=== PATIENT | male | born 1960 | race American Indian/Alaskan Native ===

== ENCOUNTER 2016-03-22 07:15 | Day surgery (SDC) | payer MEDICAID ==
--- NOTE | 2016-03-22 08:30 | Anesthesia Consultation ---
Anesthesia Consult and Med Hx Date of service: 03/22/16 - Airway Anesthetic Teeth Evaluation: Poor ROM Head & Neck: Inadequate Mental/Hyoid Distance: Adequate Mallampati Class: Class III Intubation Access Assessment: Possibly Difficult - Pulmonary Exam CTA: Yes - Cardiac Exam Cardiac Exam: RRR - Pre-Operative Health Status ASA Pre-Surgery Classification: ASA3 Proposed Anesthetic Plan: General - Pre-Anesthesia Comment Pre-Anesthesia Comments: Left upper central incisor is loose. Patient is aware that loose teeth are very succeptible to dislodgement during anesthesia due to airway manipulation. - Pulmonary Hx Smoking: Yes (1 ppd) Hx Asthma: No COPD: No Hx Pneumonia: No - Cardiovascular System Hx Hypertension: Yes - Central Nervous System CVA: Yes - Endocrine Hx End Stage Renal Disease: No - Other Systems Hx Alcohol Use: Yes (1 pint carlos qday x35 years) Hx Obesity: Yes
--- NOTE | 2016-03-22 08:30 | Anesthesia Day of Surgery ---
Anesthesia Day of Surgery - Day of Surgery Patient Examined: Yes Patient H&P Reviewed: Yes Patient is NPO: Yes
[2016-03-22] MEDS ORDERED: ZOFRAN IV PRN (08:31)
[2016-03-22] MEDS ORDERED: NORCO 5/325 PO PRN (08:31)
[2016-03-22] MEDS ORDERED: PEPCID IV NR (09:00)
[2016-03-22] MEDS ORDERED: VERSED IV NR (09:00)
[2016-03-22] MEDS ORDERED: LACTATED RINGERS 1,000 ML IV SCH (09:00)
[2016-03-22] MEDS ORDERED: DIPRIVAN 10 MG/ML IV ONE (09:22)
[2016-03-22] MEDS ORDERED: SUBLIMAZE ONE (09:22)
[2016-03-22] MEDS ORDERED: XYLOCAINE MPF 2% ONE (09:23)
[2016-03-22] MEDS ORDERED: LEVAQUIN 500MG/100ML 100 ML IV NR (09:30)
[2016-03-22] MEDS ORDERED: DECADRON ONE (09:46)
[2016-03-22] MEDS ORDERED: ANCEF/STERILE WATER 2 GM/20 ML IV NR (10:00)
[2016-03-22] MEDS ORDERED: ZOFRAN ONE (10:10)
[2016-03-22] MEDS ORDERED: DILAUDID ONE (10:54)
[2016-03-22] MEDS ORDERED: NACL 0.9% IR ONE (11:00)
[2016-03-22] MEDS ORDERED: WATER FOR IRRIG STERILE IR ONE (11:00)
--- NOTE | 2016-03-22 11:22 | Post Operative Note ---
Pre-op diagnosis: heme and hydrocele Post-op diagnosis: other (severe urethral stricture as well) Findings: as above Procedure: cysto dviu r hydrocelectomy Anesthesia: GETA Surgeon: KRISTINA BYRNES Estimated blood loss: minimal Pathology: list (sca and cyst) Specimen disposition: to lab Condition: stable Disposition: PACU
--- NOTE | 2016-03-22 11:24 | Discharge Summary ---
Short Stay Discharge Plan Activity: other (no straining ) Weight Bearing Status: Full Weight Bearing Diet: low fat, low cholesterol, low salt Wound: open to air (keep dry ) Special Instructions: other (dressing change prn.. teach wallis care ) Durable Medical Equipment Needed Upon Discharge: other (wallis) Follow up with: NGOC ALMEIDA MD [Primary Care Provider] - 7 Days KRISTINA BYRNES MD [Staff Physician] - 3 Days
[2016-03-22] MEDS: DILAUDID IV PRN ×4 (11:30→12:18)
--- NOTE | 2016-03-22 11:45 | Operative Report ---
PREOPERATIVE DIAGNOSES: Large right symptomatic hydrocele and microscopic hematuria. POSTOPERATIVE DIAGNOSES: Large right symptomatic hydrocele and microscopic hematuria, with a small left hydrocele which was not treated as well as significant approximately 1.5 cm bulbous urethral stricture. PROCEDURE: Right hydrocelectomy and direct vision internal urethrotomy. SURGEON: Anthony Win MD ANESTHESIA: General. FINDINGS: This is a gentleman as mentioned with a right hydrocele with pain and he now presents for cystoscopy and treatment of hydrocele. DESCRIPTION OF PROCEDURE: The patient was brought to the operating room and placed on the operating table. Following induction of anesthesia, he was placed in supine position, prepped and draped in usual sterile fashion. An oblique incision was made over the right hemiscrotum and carried down to the tunica vaginalis. This was dissected free. The vaginalis was opened. Approximately 80 mL of clear yellow fluid was removed. There were some cystic changes on the epididymis which were excised. Hemostasis was excellent. The tunica vaginalis was oversewn and imbricated. We were sure not to have excess tension on the cord and the vasculature. A half-inch Darlene was placed in the dependent portion of the scrotum secured with silk. Wound was irrigated. Superficial tunica was approximated with 3-0 chromic and skin with 3-0 chromic. The patient tolerated the procedure well. Cystoscopy was carried out with the flexible scope and immediately showed a bulbous stricture. This was very tight and long. We placed a wire and then we tried our best to dilate it, but we wanted to be sure that we were in good position. So, under direct vision, we opened up the stricture at the 12 o'clock position down to the prostatic urethra. Then, we used the flexible scope and the bladder was unremarkable. There was minimal trabeculation. We then replaced the wire, placed an 18 Guerra. The patient tolerated the procedure well. This was the [place] catheter over the wire, brought to recovery in stable condition. JOB# [id number] SANCHO/CRIS
[2016-03-22] MEDS ORDERED: PYRIDIUM PO ONE (12:00)
--- NOTE | 2016-03-22 12:43 | Post Anesthesia Evaluation ---
- Post Anesthesia Evaluation Patient Participated: Yes Airway Patent: Yes Stable Respiratory Function: Yes Nausea/Vomiting: No Temp > 96.8F: Yes Pain Manageable: Yes Adequeate Hydration: Yes Anesthesia Complications: No Block Receding Appropriately: Not Applicable Patient on Ventilator: No
[2016-03-22 16:16] VITALS: BP 145/95
--- NOTE | 2016-03-22 21:05 | Admit Criteria Form ---
Admission Criteria Documentation: AMBULATORY SURGERY EXCEPTION CRITERIA Ambulatory Surgery Exception Criteria ( Place 'X' for any and all applicable criteria): Surgery or procedure performed on ambulatory basis may require inpatient stay for[A] ANY ONE of the following(1)(2)(3)(4)(5)(6)(7)(8)(9): [X] I. A preoperative situation, condition, or finding that warrants inpatient stay as indicated by ANY ONE of the following: [] a) Inpatient care needed because of severity of a disease or condition rather than the surgery (eg, severe cardiac or respiratory disease, severe infection) (15) (16 ) (17) (18) [] b) Emergent procedure (eg, angioplasty for acute ischemia)(19) [] c) Complex surgical approach or situation as indicated by ANY ONE of the following(3): [] i) Open approach needed instead of usual endoscopic, transcatheter, or other less invasive procedure [] ii) Difficult approach because of previous operation [] iii) Airway monitoring required after open neck procedures(20)(21) [] iv) Large mass requiring unusually extensive dissection [] v) Additional complicating feature requiring inpatient care (eg, drain management)(22(23): [X] d) Major surgery in a pt with high anesthetic risk as indicated by ANY ONE of the following (2)(3)(5)(7)(8): [X] i) ASA risk class III or higher (severe systemic disease impairing function) [D] [] ii) Advanced age (eg, older than 85 years)(14)(24) [] iii) Symptomatic heart failure(25) [] iv) Symptomatic asthma or COPD(8)(21) [] v) Morbid obesity with hemodynamic or respiratory problems(20)( 21)(26)(27) [] vi) Obstructive sleep apnea(20)(21) [] vii) Former premature infants who are younger than 60 weeks [] viii) High risk for severe postoperative abnormalities (eg, severe postoperative hypocalcemia after parathyroidectomy for severe hyperparathyroidism)(27)( 28) [] ix) Unstable angina(25) [] e) Drug-related risk requiring inpatient stay as indicated by ANY ONE of the following(5)(10)(14)(32)(33) [] i) Procedure requires discontinuing drugs or other therapy (eg , antiarrhythmic medication, antiseizure medication), which necessitates inpatient observation or treatment.(18)(31) [] ii) Major surgery and high risk drug use as indicated by ANY ONE of the following: [] 1) Active abuse of cocaine or similar drug [] 2) Monoamine oxidase inhibitor use [] 3) Other drug identified as posing risk [] f) Inadequate outpatient care situation as indicated by ANY ONE of the following(5)(10)(14)(32)(33) [] i) Patient lives remote from medical facility and procedure has urgent complication potential, and temporary nearby residence cannot be arranged [] ii) Patient will have postprocedure incapacitation and inadequate assistance at home, or alternative level of care cannot be arranged. [] iii) Patient will have long general anesthesia or procedure side effect resolution time, and competent person to stay with patient on first postoperative night at home or alternative level of care cannot be arranged. []iv) Other inadequate outpatient situation that cannot be handled by other means [] II. A perioperative event, condition, or finding that warrants inpatient stay as indicated by ANY ONE of the following (1)(2)(3): [] a) Inadequate physiologic recovery: cardiovascular, respiratory, or hemodynamic status not normal or near preoperative baseline(18) [] b) Hemodynamic instability [] c) Patient not alert with near normal or baseline mental status [] d) Temperature not normal or as expected and not appropriate for outpatient treatment of condition [] e) Ambulatory or appropriate activity level status not yet achieved post procedure [E](34)(35)(36) [] f) Operative site not appropriate (eg, unexpected or excessive drainage or bleeding) [] g) Postoperative effects not resolved or adequately managed (eg, significant pain or vomiting not appropriate for outpatient or next level of care)(10)(12) [] h) Complicating features requiring inpatient care as indicated by ANY ONE of the following(37): [] i) Severe complications of procedure (eg, bowel injury, airway compromise, vascular injury,severe hemorrhage) [] ii) Extensive (eg, dissection far beyond usual scope of procedure ) or prolonged (eg, 120 minutes beyond usual) surgery needed requiring inpatient postoperative care [] iii) Conversion to an open or complex procedure that requires inpatient care (eg, open vs laparoscopic cholecystectomy, abdominal vs vaginal hysterectomy)(38) [] iv) Comorbid condition or test result identified during or post procedure that requires inpatient care (7) [] v) Malignant hyperthermia(30) [] vi) Other complicating feature requiring inpatient care(22)(23) Inpatient stay may be needed until ALL of the following are present (1)(2)(3)(4) (5)(6)(10)(14)(33)(40): []a) Physiologic recovery: cardiovascular, respiratory, and hemodynamic status normal or near preoperative baseline []b) Hemodynamic stability []c) Patient alert, with near normal or baseline mental status []d) Temperature appropriate: patient afebrile or temperature appropriate for outpt treatment of condition []e) Activity level appropriate: ambulatory or appropriate activity level post procedure []f) Operative site appropriate as indicated by ALL of the following: []i) Site dry or with expected drainage []ii) Any blood noted is as expected for procedure. []g) Postoperative effects resolved or managed as indicated by ALL of the following: []i) Pain management appropriate for outpatient (or next level of) care(10) []ii) Minimal nausea and vomiting: if present, successfully treated with oral medication(12) []iii) Headache, dizziness, or drowsiness (if present) are mild. []h) Voiding status acceptable as indicated by ANY ONE of the following: []i) Voiding spontaneously []ii) No voiding but instructions given for follow-up in 6 to 8 hours []iii) Urinary catheter in place, and instructions given for follow-up []i) Complicating features requiring inpatient care manageable at a lower level of care(37) []j) Comorbid conditions manageable at a lower level of care(37) The original [employer] content created by [employer] has been revised. The portions of the content which have been revised are identified through the use of italic text or in bold, and [facility] [employer] has neither reviewed nor approved the modified material. All other unmodified content is copyright [employer]. Please see references footnoted in the original [employer] edition 2016 Admission Criteria Met: Yes
== END 2016-03-22 14:00 | disposition home or self-care (01) ==
LOC: OR 07:15
PROVIDERS: ATTEND Urology
DX: N43.2 Other hydrocele (principal); N35.9 Urethral stricture, unspecified; I10 Essential (primary) hypertension; F17.210 Nicotine dependence, cigarettes, uncomplicated; E66.9 Obesity, unspecified; Z68.39 Body mass index [BMI] 39.0-39.9, adult; Z72.89 Other problems related to lifestyle; Z86.73 Personal history of transient ischemic attack (TIA), and cerebral infarction without residual deficits
CPT/HCPCS: 52276; 55040; 88302; A4217; C1726; C1769; J1100; J1170; J1956; J2250; J2405; J2704; J3010; J7120

== ENCOUNTER 2016-07-12 09:42 | Emergency (ER) | payer MEDICAID ==
[2016-07-12] MEDS ORDERED: FIORICET PO ONE (13:51)
--- NOTE | 2016-07-12 14:40 | Cat Scan Report ---
CT head without contrast: Axial images demonstrates an approximate 16 mm sized area of hypodensity in the left frontoparietal region and a significantly smaller area in the left mid left parietal region. A third small area of hypodensity is identified in the putamen region. A lacunar type area of hypodensity is identified in the right caudate nucleus. There is no evidence of mass effect nor hemorrhage in any of these locations room. No extra cerebral collection. Normal ventricles position and size. The visualized bones and paranasal sinuses are unremarkable. Compared to this patient's prior examination in February 2014 these findings appear to be generally unchanged. Impressions: Multiple chronic infarcts. No acute findings.
--- NOTE | 2016-07-12 15:07 | Emergency Department Report ---
ED General Adult HPI - General Chief complaint: Skin Rash Stated complaint: RASH/HEADACHE /PAIN IN BOTH KNEES Time Seen by Provider: 07/12/16 13:00 Source: patient Mode of arrival: Ambulatory Limitations: No Limitations - History of Present Illness Initial comments: PT c/o rash for 2-3 years. PT states the rash will flare up and then improve with steroids. PT states the rash is being treated by his PCP. PT states he was seen by Dr Aleman on 07-06-16. PT has the RX medications that he was started on with him (Bactrim, medrol dose pack, and Hydroxyzine) PT states no improvement in rash. PT states the rash has been itchy and painful x 10 days. PT states he has had a headache x 4 days. PT also co knee pain from arthritis. PT denies that close contacts have a rash. MD Complaint: rash/ headache/ knee pain Onset/Timin -: Gradual, days(s) (of rash ) Location: face, chest, back, abdomen, buttocks, upper extremity, lower extremity Severity scale (0 -10): 10 Quality: burning, constant, other (itchy ) Consistency: constant Improves with: none Worsens with: medication Associated Symptoms: denies other symptoms. denies: fever/chills, loss of appetite, nausea/vomiting Treatments Prior to Arrival: other (bactrim, medrol) - Related Data Previous Rx's Medication Instructions Recorded Last Taken Type Butalb/Acetamin/Caff 50-325-40 2 tab PO Q4H PRN #30 tablet 03/13/14 Unknown Rx [Fioricet] Aspirin EC [Aspirin Enteric Coated 81 mg PO QDAY #30 tablet. 07/15/15 Unknown Rx TAB] Indomethacin [Indocin] 25 mg PO Q8H #14 capsule 07/15/15 03/21/16 Rx Pravastatin (Nf) [Pravachol] 20 mg PO QDAY #30 tablet 07/15/15 03/21/16 Rx amLODIPine [Norvasc] 10 mg PO DAILY #30 tablet 07/15/15 03/21/16 Rx Butalb/Acetamin/Caff 50-325-40 1 tab PO Q6HR PRN #12 tab 07/12/16 Unknown Rx [Fioricet] predniSONE [Deltasone] 40 mg PO QDAY #10 tab 07/12/16 Unknown Rx Allergies Allergy/AdvReac Type Severity Reaction Status Date / Time Penicillins AdvReac Rash Verified 03/22/16 09:33 ED Review of Systems ROS: Stated complaint: RASH/HEADACHE /PAIN IN BOTH KNEES Other details as noted in HPI Constitutional: denies: chills, fever Respiratory: denies: cough Cardiovascular: denies: chest pain Gastrointestinal: denies: abdominal pain, nausea, vomiting Musculoskeletal: as per HPI Skin: rash Neurological: headache. denies: weakness (no new weakness ), abnormal gait ( ambulates with gait. ) ED Past Medical Hx - Past Medical History Hx Hypertension: Yes Hx CVA: Yes Hx Congestive Heart Failure: No Hx Diabetes: No Hx Arthritis: Yes Hx Asthma: No Hx COPD: No Additional medical history: HIGH CHOLESTEROL. GOUT - Social History Smoking Status: Current Every Day Smoker Substance Use Type: Alcohol - Medications Home Medications: Home Medications Medication Instructions Recorded Confirmed Last Taken Type Butalb/Acetamin/Caff 50-325-40 2 tab PO Q4H PRN #30 tablet 03/13/14 07/15/15 Unknown Rx [Fioricet] Aspirin EC [Aspirin Enteric Coated 81 mg PO QDAY #30 tablet. 07/15/15 Unknown Rx TAB] Indomethacin [Indocin] 25 mg PO Q8H #14 capsule 07/15/15 03/21/16 Rx Pravastatin (Nf) [Pravachol] 20 mg PO QDAY #30 tablet 07/15/15 03/21/16 Rx amLODIPine [Norvasc] 10 mg PO DAILY #30 tablet 07/15/15 03/21/16 Rx Butalb/Acetamin/Caff 50-325-40 1 tab PO Q6HR PRN #12 tab 07/12/16 Unknown Rx [Fioricet] predniSONE [Deltasone] 40 mg PO QDAY #10 tab 07/12/16 Unknown Rx ED Physical Exam - General Limitations: No Limitations General appearance: alert, in no apparent distress, obese - Head Head exam: Present: atraumatic, normocephalic, normal inspection - Eye Eye exam: Present: normal appearance, PERRL, EOMI. Absent: conjunctival injection - ENT ENT exam: Present: mucous membranes moist, normal external ear exam, other ( poor dentation ) - Neck Neck exam: Present: normal inspection, full ROM - Respiratory Respiratory exam: Present: normal lung sounds bilaterally. Absent: respiratory distress - Cardiovascular Cardiovascular Exam: Present: regular rate, normal rhythm, normal heart sounds - GI/Abdominal GI/Abdominal exam: Present: soft, normal bowel sounds. Absent: tenderness - Extremities Exam Extremities exam: Present: full ROM. Absent: tenderness, pedal edema, joint swelling, calf tenderness - Back Exam Back exam: Present: full ROM. Absent: tenderness, CVA tenderness (R), CVA tenderness (L), muscle spasm, paraspinal tenderness, vertebral tenderness - Neurological Exam Neurological exam: Present: alert, oriented X3, normal gait - Expanded Neurological Exam Expanded Patient oriented to: Present: person, place, time Cranial nerves: EOM's Intact: Normal Sensory exam: Upper Extremity Light Touch: Normal, Lower Extremity Light Touch: Normal, Lower Extremity Temperature: Normal Motor strength exam: RUE: 5, LUE: 5, RLE: 5, LLE: 5 Best Eye Response ([place]): (4) open spontaneously Best Motor Response ([place]): (6) obeys commands Best Verbal Response ([place]): (5) oriented [place] Total: 15 - Psychiatric Psychiatric exam: Present: normal affect, normal mood - Skin Skin exam: Present: warm, dry, rash - Expanded Skin Exam Expanded Distribution of rash: generalized, thorax, chest, abdomen Description of rash: Present: erythematous, macular, papular, other (R trunk has hyperpigmented patches. multiple areas of excoriation noted. ). Absent: tenderness, swelling, vesicular, blisters, bullous, petechial, purpuic, urticarial, discharge ED Course Vital Signs 07/12/16 07/12/16 09:46 15:23 Temperature 98.5 F Pulse Rate 94 H 88 Respiratory 16 18 Rate Blood Pressure 133/82 Blood Pressure 128/76 [Right] O2 Sat by Pulse 98 97 Oximetry - Reevaluation(s) Reevaluation #1: 07/12/16 15:10 PT aware of head CT results. PT states pain improved with fioricet. PT aware he will need to follow up with Dermatology for his worsening rash. PT was also seen by Dr Shaw, who agrees with plan of care. - Pulse Oximetry Interpretation Digit-Finger Initial Pulse Oximetry Readin Actions Taken: none ED Medical Decision Making - Radiology Data Radiology results: report reviewed CT head - no acute changes since 1-15 - Differential Diagnosis intracranial process, exzema, scabies, migraine, headache Critical Care Time: No Critical care attestation.: If time is entered above; I have spent that time in minutes in the direct care of this critically ill patient, excluding procedure time. ED Disposition Clinical Impression: Rash and nonspecific skin eruption Acute headache Qualifiers: Headache type: unspecified Intractability: not intractable Qualified Code(s): R51 - Headache Disposition: DISCHARGED TO HOME OR SELFCARE Is pt being admited?: No Does the pt Need Aspirin: No Condition: Stable Instructions: Acute Headache (ED), Acute Rash (ED) Additional Instructions: Follow up with Dermatology for your rash. continue taking your Bactrim. Return to ED if worsening or concerns Prescriptions: Butalb/Acetamin/Caff 50-325-40 [Fioricet] 1 tab PO Q6HR PRN #12 tab PRN Reason: Headache predniSONE [Deltasone] 40 mg PO QDAY #10 tab Referrals: NGOC ALMEIDA MD [Primary Care Provider] - 3-5 Days XIANG MURO MD [Staff Physician] - 3-5 Days ESTEE BUENO MD [Staff Physician] - 3-5 Days NOA EVANGELISTA MD [Staff Physician] - 3-5 Days Time of Disposition: 15:15
[2016-07-12 15:24] VITALS: BP 128/76
== END 2016-07-12 15:23 | disposition home or self-care (01) ==
LOC: ED 09:42
DX: R21 Rash and other nonspecific skin eruption (principal); R51 Headache; I10 Essential (primary) hypertension; F17.200 Nicotine dependence, unspecified, uncomplicated
CPT/HCPCS: 70450; 82962; 99283

== ENCOUNTER 2016-08-09 12:06 | Emergency (ER) | payer MEDICAID ==
[2016-08-09 12:12] VITALS: BP 127/92
[2016-08-09] MEDS ORDERED: TYLENOL PO ONE (14:16)
--- NOTE | 2016-08-09 14:16 | Emergency Department Report ---
- General Chief complaint: Skin/Abscess/Foreign Body Stated complaint: SPIDER BITE ON ABD LEFT SIDE Time Seen by Provider: 08/09/16 13:54 Source: patient Mode of arrival: Ambulatory Limitations: No Limitations - History of Present Illness Initial comments: This is a 55-year-old male well-nourished with nontoxic or ill in appearance that presents with possible spider bite to the left abdomen area. Patient stated he noticed and the symptoms since . Associated symptoms includes redness with pain to touch. Patient denies any pus or drainage. Denies swelling. Denies fever, chills, chest pain, s stiff neck, hortness of breath, nausea, vomiting, abdominal pain, rash, numbness or tingling. Patient states allergies to penicillin and ibuprofen. Denies significant medical past history of septic arthritis, hypertension,, and CVA. MD complaint: insect bite/sting -: Gradual, days(s) (4) Tetanus Up to Date: no (as per PT) Severity: mild Severity scale (0 -10): 2 Quality: aching Consistency: constant Improves with: none Worsens with: none Context: none Associated symptoms: denies other symptoms Treatments Prior to Arrival: none - Related Data Previous Rx's Medication Instructions Recorded Last Taken Type Butalb/Acetamin/Caff 50-325-40 2 tab PO Q4H PRN #30 tablet 03/13/14 Unknown Rx [Fioricet] Aspirin EC [Aspirin Enteric Coated 81 mg PO QDAY #30 tablet. 07/15/15 Unknown Rx TAB] Indomethacin [Indocin] 25 mg PO Q8H #14 capsule 07/15/15 03/21/16 Rx Pravastatin (Nf) [Pravachol] 20 mg PO QDAY #30 tablet 07/15/15 03/21/16 Rx amLODIPine [Norvasc] 10 mg PO DAILY #30 tablet 07/15/15 03/21/16 Rx Butalb/Acetamin/Caff 50-325-40 1 tab PO Q6HR PRN #12 tab 07/12/16 Unknown Rx [Fioricet] predniSONE [Deltasone] 40 mg PO QDAY #10 tab 07/12/16 Unknown Rx Acetaminophen [Acetaminophen TAB] 650 mg PO Q6HR PRN #15 tablet 08/09/16 Unknown Rx Clindamycin [Clindamycin CAP] 450 mg PO Q8HR #21 capsule 08/09/16 Unknown Rx Allergies Allergy/AdvReac Type Severity Reaction Status Date / Time Penicillins AdvReac Rash Verified 03/22/16 09:33 Abscess Boil HPI - HPI Chief Complaint: Skin/Abscess/Foreign Body Stated Complaint: SPIDER BITE ON ABD LEFT SIDE Time Seen by Provider: 08/09/16 13:54 Home Medications: Previous Rx's Medication Instructions Recorded Last Taken Type Butalb/Acetamin/Caff 50-325-40 2 tab PO Q4H PRN #30 tablet 03/13/14 Unknown Rx [Fioricet] Aspirin EC [Aspirin Enteric Coated 81 mg PO QDAY #30 tablet. 07/15/15 Unknown Rx TAB] Indomethacin [Indocin] 25 mg PO Q8H #14 capsule 07/15/15 03/21/16 Rx Pravastatin (Nf) [Pravachol] 20 mg PO QDAY #30 tablet 07/15/15 03/21/16 Rx amLODIPine [Norvasc] 10 mg PO DAILY #30 tablet 07/15/15 03/21/16 Rx Butalb/Acetamin/Caff 50-325-40 1 tab PO Q6HR PRN #12 tab 07/12/16 Unknown Rx [Fioricet] predniSONE [Deltasone] 40 mg PO QDAY #10 tab 07/12/16 Unknown Rx Acetaminophen [Acetaminophen TAB] 650 mg PO Q6HR PRN #15 tablet 08/09/16 Unknown Rx Clindamycin [Clindamycin CAP] 450 mg PO Q8HR #21 capsule 08/09/16 Unknown Rx Allergies/Adverse Reactions: Allergies Allergy/AdvReac Type Severity Reaction Status Date / Time Penicillins AdvReac Rash Verified 03/22/16 09:33 ED Review of Systems ROS: Stated complaint: SPIDER BITE ON ABD LEFT SIDE Other details as noted in HPI Constitutional: denies: chills, fever Eyes: denies: eye pain, eye discharge, vision change ENT: denies: ear pain, throat pain Respiratory: denies: cough, shortness of breath, wheezing Cardiovascular: denies: chest pain, palpitations Endocrine: no symptoms reported Gastrointestinal: denies: abdominal pain, nausea, diarrhea Genitourinary: denies: urgency, dysuria Musculoskeletal: denies: back pain, joint swelling, arthralgia Skin: denies: rash, lesions Neurological: denies: headache, weakness, paresthesias Psychiatric: denies: anxiety, depression Hematological/Lymphatic: denies: easy bleeding, easy bruising ED Past Medical Hx - Past Medical History Hx Hypertension: Yes Hx CVA: Yes (right side weakness) Hx Congestive Heart Failure: No Hx Diabetes: No Hx Arthritis: Yes Hx Asthma: No Hx COPD: No Additional medical history: HIGH CHOLESTEROL. GOUT - Social History Smoking Status: Current Every Day Smoker Substance Use Type: Alcohol - Medications Home Medications: Home Medications Medication Instructions Recorded Confirmed Last Taken Type Butalb/Acetamin/Caff 50-325-40 2 tab PO Q4H PRN #30 tablet 03/13/14 07/15/15 Unknown Rx [Fioricet] Aspirin EC [Aspirin Enteric Coated 81 mg PO QDAY #30 tablet.dr 07/15/15 Unknown Rx TAB] Indomethacin [Indocin] 25 mg PO Q8H #14 capsule 07/15/15 03/21/16 Rx Pravastatin (Nf) [Pravachol] 20 mg PO QDAY #30 tablet 07/15/15 03/21/16 Rx amLODIPine [Norvasc] 10 mg PO DAILY #30 tablet 07/15/15 03/21/16 Rx Butalb/Acetamin/Caff 50-325-40 1 tab PO Q6HR PRN #12 tab 07/12/16 Unknown Rx [Fioricet] predniSONE [Deltasone] 40 mg PO QDAY #10 tab 07/12/16 Unknown Rx Acetaminophen [Acetaminophen TAB] 650 mg PO Q6HR PRN #15 tablet 08/09/16 Unknown Rx Clindamycin [Clindamycin CAP] 450 mg PO Q8HR #21 capsule 08/09/16 Unknown Rx ED Physical Exam - General Limitations: No Limitations General appearance: alert, in no apparent distress - Head Head exam: Present: atraumatic, normocephalic, normal inspection - Eye Eye exam: Present: normal appearance, PERRL, EOMI. Absent: scleral icterus, conjunctival injection, nystagmus, periorbital swelling, periorbital tenderness - ENT ENT exam: Present: normal exam, normal orophraynx, mucous membranes moist, TM's normal bilaterally, normal external ear exam - Neck Neck exam: Present: normal inspection, full ROM. Absent: tenderness, meningismus, lymphadenopathy, thyromegaly - Respiratory Respiratory exam: Present: normal lung sounds bilaterally. Absent: respiratory distress, wheezes, rales, rhonchi, stridor, chest wall tenderness, accessory muscle use, decreased breath sounds, prolonged expiratory - Cardiovascular Cardiovascular Exam: Present: regular rate, normal rhythm, normal heart sounds. Absent: bradycardia, tachycardia, irregular rhythm, systolic murmur, diastolic murmur, rubs, gallop - GI/Abdominal GI/Abdominal exam: Present: soft, normal bowel sounds. Absent: distended, tenderness, guarding, rebound, rigid, diminished bowel sounds - Rectal Rectal exam: Present: deferred - Extremities Exam Extremities exam: Present: normal inspection, full ROM, normal capillary refill. Absent: tenderness, pedal edema, joint swelling, calf tenderness - Back Exam Back exam: Present: normal inspection, full ROM. Absent: tenderness, CVA tenderness (R), CVA tenderness (L), muscle spasm, paraspinal tenderness, vertebral tenderness, rash noted - Neurological Exam Neurological exam: Present: alert, oriented X3, CN II-XII intact, normal gait - Psychiatric Psychiatric exam: Present: normal affect, normal mood - Skin Skin exam: Present: warm, dry, intact, normal color. Absent: rash - Other Other exam information: 4 cm x 5 cm erythema with tenderness to touch the left lower abdomen area. No fluctuance present. No swelling. No pus. No drainage. ED Course Vital Signs 08/09/16 12:09 Temperature 98.7 F Pulse Rate 85 Respiratory 18 Rate Blood Pressure 127/92 O2 Sat by Pulse 100 Oximetry ED Medical Decision Making - Medical Decision Making Ed course: This is a 55-year-old male presents with cellulitis to the left lower abdomen area. 1- after my physical exam, patient received acetaminophen 650 mg and tetanus booster. 2- I used a black permit monitor and outlined the cellulitic area and I instructed the patient to observe symptoms of increasing redness, pus, drainage , or swelling and to report to emergency room as soon as possible if these symptoms occur. 3- patient received clindamycin at the time of discharge and was instructed to finish full course of antibiotics. 4- at time time of discharge, the patient does not seem toxic or ill in appearance. No acute signs of distress noted. Patient agrees to discharge treatment plan of care. No further questions noted by the patient. 5- pain was also notified to follow up with primary care doctor in 3-5 days. Critical care attestation.: If time is entered above; I have spent that time in minutes in the direct care of this critically ill patient, excluding procedure time. ED Disposition Clinical Impression: Cellulitis Qualifiers: Site of cellulitis: unspecified site Qualified Code(s): L03.90 - Cellulitis, unspecified Disposition: TO HOME OR SELFCARE Is pt being admited?: No Does the pt Need Aspirin: No Condition: Stable Instructions: Clindamycin (By mouth), Pelvic Inflammatory Disease (ED) Additional Instructions: observe symptoms of increasing redness, pus, drainage, or swelling past the marked outlined permit marker and to report to emergency room as soon as possible if these symptoms occur. Take clindamycin as prescribed and finish full course of antibiotic as prescribed. Follow-up with your primary care doctor in 3-5 days Prescriptions: Acetaminophen [Acetaminophen TAB] 650 mg PO Q6HR PRN #15 tablet PRN Reason: Pain Clindamycin [Clindamycin CAP] 450 mg PO Q8HR #21 capsule Referrals: NGOC ALMEIDA MD [Primary Care Provider] - 3-5 Days [facility] [Outside] - 3-5 Days [facility] [Outside] - 3-5 Days Forms: Work/School Release Form(ED)
[2016-08-09] MEDS ORDERED: BOOSTRIX IM ONE (14:17)
== END 2016-08-09 14:40 | disposition home or self-care (01) ==
LOC: ED 12:06
DX: S30.861A Insect bite (nonvenomous) of abdominal wall, initial encounter (principal); L03.311 Cellulitis of abdominal wall; I63.9 Cerebral infarction, unspecified; M19.90 Unspecified osteoarthritis, unspecified site; E78.00 Pure hypercholesterolemia, unspecified; F17.200 Nicotine dependence, unspecified, uncomplicated; Z88.0 Allergy status to penicillin; Z79.82 Long term (current) use of aspirin; W57.XXXA Bitten or stung by nonvenomous insect and other nonvenomous arthropods, initial encounter; Y93.9 Activity, unspecified; Y99.9 Unspecified external cause status; Y92.9 Unspecified place or not applicable
CPT/HCPCS: 90471; 90715

== ENCOUNTER 2016-09-06 08:24 | Emergency (ER) | payer MEDICAID ==
[2016-09-06 08:35] VITALS: BP 129/82
[2016-09-06] MEDS ORDERED: NORCO 7.5/325 PO ONE (09:00)
[2016-09-06] MEDS ORDERED: TORADOL IM ONE (09:00)
[2016-09-06] MEDS ORDERED: FLEXERIL PO ONE (09:00)
--- NOTE | 2016-09-06 09:41 | XRay Report ---
PELVIS RADIOGRAPHS INDICATION: Fall, right pelvic pain. COMPARISON: None similar. FINDINGS: Frontal pelvic radiographs demonstrates intact articulation. Nonobstructive bowel gas pattern. Normal included bilateral SI and hip joints. Few left hemipelvic phleboliths. Possible osteopenia. CONCLUSION: No acute radiographic abnormality, as above. Thank you for the opportunity to participate in this patient's care.
--- NOTE | 2016-09-06 09:42 | XRay Report ---
RIGHT ELBOW RADIOGRAPHS INDICATION: Fall, right elbow pain. COMPARISON: None similar. FINDINGS: AP and lateral right elbow radiographs demonstrate intact articulation. No abnormal fat pad sign noted. Radial head appears intact. CONCLUSION: No acute finding. Thank you for the opportunity to participate in this patient's care.
--- NOTE | 2016-09-06 09:44 | XRay Report ---
RIGHT FEMUR RADIOGRAPHS INDICATION: Fall, right femur pain. COMPARISON: None similar. FINDINGS: AP and lateral right femur radiographs demonstrate intact bones, included joints and soft tissues. Osteopenia not excluded. Slight knee degenerative spurring. CONCLUSION: No acute right femur radiographic abnormality with slight right knee osteoarthrosis, as described. Thank you for the opportunity to participate in this patient's care.
--- NOTE | 2016-09-06 14:43 | Emergency Department Report ---
ED Fall HPI - General Chief Complaint: Fall Stated Complaint: FELL THRU BHUPINDER RAMIREZ Source: patient Mode of arrival: Ambulatory Limitations: No Limitations - History of Present Illness Initial Comments: 55 year old male presents to ED after mechanical fall with right knee pain, right upper leg pain and right hip pain. patient is ambulatory. patient is stable, neurologically intact and in no acute distress. patient denies trauma to head/neck or LOC. MD Complaint: fall -: Sudden Fall From: standing When Fall Occurred: just prior to arrival Fall Witnessed: no Place Fall Occurred: home Loss of Consciousness: none Prolonged Down Time?: no Symptoms Prior to Fall: none Location: other (right knee, right upper leg, right hip) Location - Extremities: Right: Thigh, Knee Severity: mild Context: tripped/slipped Associated Symptoms: denies. denies: headache, neck pain, numbness, weakness, chest paint, shortness of breath, abdominal pain, unable to walk, lightheaded, vertigo, confusion - Related Data Previous Rx's Medication Instructions Recorded Last Taken Type Butalb/Acetamin/Caff 50-325-40 2 tab PO Q4H PRN #30 tablet 03/13/14 Unknown Rx [Fioricet] Aspirin EC [Aspirin Enteric Coated 81 mg PO QDAY #30 tablet. 07/15/15 Unknown Rx TAB] Indomethacin [Indocin] 25 mg PO Q8H #14 capsule 07/15/15 03/21/16 Rx Pravastatin (Nf) [Pravachol] 20 mg PO QDAY #30 tablet 07/15/15 03/21/16 Rx amLODIPine [Norvasc] 10 mg PO DAILY #30 tablet 07/15/15 03/21/16 Rx Butalb/Acetamin/Caff 50-325-40 1 tab PO Q6HR PRN #12 tab 07/12/16 Unknown Rx [Fioricet] predniSONE [Deltasone] 40 mg PO QDAY #10 tab 07/12/16 Unknown Rx Acetaminophen [Acetaminophen TAB] 650 mg PO Q6HR PRN #15 tablet 08/09/16 Unknown Rx Clindamycin [Clindamycin CAP] 450 mg PO Q8HR #21 capsule 08/09/16 Unknown Rx Ketorolac [Toradol] 10 mg PO Q6H PRN #20 tablet 09/06/16 Unknown Rx methOCARBAMOL [Robaxin TAB] 500 mg PO BID #20 tab 09/06/16 Unknown Rx Allergies Allergy/AdvReac Type Severity Reaction Status Date / Time Penicillins AdvReac Rash Verified 09/06/16 08:30 ED Review of Systems ROS: Stated complaint: FELL THRU PATIO PORCH Other details as noted in HPI Constitutional: denies: chills, fever Eyes: denies: eye pain, eye discharge, vision change ENT: denies: ear pain, throat pain Respiratory: denies: cough, shortness of breath, wheezing Cardiovascular: denies: chest pain, palpitations Endocrine: no symptoms reported Gastrointestinal: denies: abdominal pain, nausea, diarrhea Genitourinary: denies: urgency, dysuria Musculoskeletal: arthralgia. denies: back pain, joint swelling Skin: denies: rash, lesions Neurological: denies: headache, weakness, paresthesias Psychiatric: denies: anxiety, depression Hematological/Lymphatic: denies: easy bleeding, easy bruising ED Past Medical Hx - Past Medical History Hx Hypertension: Yes Hx CVA: Yes (right side weakness) Hx Congestive Heart Failure: No Hx Diabetes: No Hx Arthritis: Yes Hx Asthma: No Hx COPD: No Additional medical history: HIGH CHOLESTEROL. GOUT - Social History Smoking Status: Current Every Day Smoker Substance Use Type: None - Medications Home Medications: Home Medications Medication Instructions Recorded Confirmed Last Taken Type Butalb/Acetamin/Caff 50-325-40 2 tab PO Q4H PRN #30 tablet 03/13/14 07/15/15 Unknown Rx [Fioricet] Aspirin EC [Aspirin Enteric Coated 81 mg PO QDAY #30 tablet. 07/15/15 Unknown Rx TAB] Indomethacin [Indocin] 25 mg PO Q8H #14 capsule 07/15/15 03/21/16 Rx Pravastatin (Nf) [Pravachol] 20 mg PO QDAY #30 tablet 07/15/15 03/21/16 Rx amLODIPine [Norvasc] 10 mg PO DAILY #30 tablet 07/15/15 03/21/16 Rx Butalb/Acetamin/Caff 50-325-40 1 tab PO Q6HR PRN #12 tab 07/12/16 Unknown Rx [Fioricet] predniSONE [Deltasone] 40 mg PO QDAY #10 tab 07/12/16 Unknown Rx Acetaminophen [Acetaminophen TAB] 650 mg PO Q6HR PRN #15 tablet 08/09/16 Unknown Rx Clindamycin [Clindamycin CAP] 450 mg PO Q8HR #21 capsule 08/09/16 Unknown Rx Ketorolac [Toradol] 10 mg PO Q6H PRN #20 tablet 09/06/16 Unknown Rx methOCARBAMOL [Robaxin TAB] 500 mg PO BID #20 tab 09/06/16 Unknown Rx ED Physical Exam - General Limitations: No Limitations General appearance: alert, in no apparent distress - Head Head exam: Present: atraumatic, normocephalic - Eye Eye exam: Present: normal appearance - ENT ENT exam: Present: mucous membranes moist - Neck Neck exam: Present: normal inspection, full ROM. Absent: tenderness - Respiratory Respiratory exam: Present: normal lung sounds bilaterally. Absent: respiratory distress - Cardiovascular Cardiovascular Exam: Present: regular rate, normal rhythm. Absent: systolic murmur, diastolic murmur, rubs, gallop - GI/Abdominal GI/Abdominal exam: Present: soft, normal bowel sounds. Absent: distended, tenderness, guarding - Rectal Rectal exam: Present: deferred - Extremities Exam Extremities exam: Present: normal inspection, full ROM, tenderness (mild tenderness to right knee and right hip) - Back Exam Back exam: Present: normal inspection, full ROM. Absent: tenderness - Neurological Exam Neurological exam: Present: alert, oriented X3, normal gait - Psychiatric Psychiatric exam: Present: normal affect, normal mood - Skin Skin exam: Present: warm, dry, intact, normal color. Absent: rash ED Course Vital Signs 09/06/16 08:31 Temperature 98 F Pulse Rate 79 Respiratory 18 Rate Blood Pressure 129/82 O2 Sat by Pulse 98 Oximetry ED Medical Decision Making - Radiology Data Radiology results: report reviewed xr right pelvis No acute radiographic abnormality xr right femur no acute right femu radiographic abnormality xr right knee No acute finding. slight right knee osteoarthrosis. - Medical Decision Making 55 year old male presents to ED with right knee and right hip pain after mechanical fall. patient has negative imaging studies. patient is stable, neurologically intact and in no acute distress. patient has decreased pain after medications during ED visit. Critical care attestation.: If time is entered above; I have spent that time in minutes in the direct care of this critically ill patient, excluding procedure time. ED Disposition Clinical Impression: Fall at home Qualifiers: Encounter type: initial encounter Qualified Code(s): W19.XXXA - Unspecified fall, initial encounter Disposition: TO HOME OR SELFCARE Is pt being admited?: No Does the pt Need Aspirin: No Condition: Stable Instructions: Fall Prevention (ED) Prescriptions: Ketorolac [Toradol] 10 mg PO Q6H PRN #20 tablet PRN Reason: Pain methOCARBAMOL [Robaxin TAB] 500 mg PO BID #20 tab Referrals: PRIMARY CARE, [Primary Care Provider] - 3-5 Days Forms: Work/School Release Form(ED)
== END 2016-09-06 10:29 | disposition home or self-care (01) ==
LOC: ED 08:24
DX: I10 Essential (primary) hypertension (principal); Z86.73 Personal history of transient ischemic attack (TIA), and cerebral infarction without residual deficits; M19.90 Unspecified osteoarthritis, unspecified site; E78.00 Pure hypercholesterolemia, unspecified; F17.200 Nicotine dependence, unspecified, uncomplicated; M10.9 Gout, unspecified; Z79.82 Long term (current) use of aspirin; Z88.0 Allergy status to penicillin; W01.0XXA Fall on same level from slipping, tripping and stumbling without subsequent striking against object, initial encounter; Y93.89 Activity, other specified; Y99.8 Other external cause status; Y92.89 Other specified places as the place of occurrence of the external cause
CPT/HCPCS: 72170; 73070; 73552; 96372; 99283; J1885

== ENCOUNTER 2017-02-09 13:25 | Emergency (ER) | payer MEDICAID ==
[2017-02-09 15:03] LABS: Basophils % (Auto) 0.8 % (0.0-1.8); Eosinophils % (Auto) 3.7 % (0.0-4.3); Hematocrit 43.4 % (35.5-45.6); Hemoglobin 14.1 gm/dl (11.8-15.2); Mean Corpuscular HGB Conc 33 % (32-34); Mean Corpuscular Hemoglobin 31 pg (28-32); Mean Corpuscular Volume 96 fl (84-94); Platelet Count 254 K/mm3 (140-440); Red Blood Count 4.54 M/mm3 (3.65-5.03); Red Cell Distribution Width 13.7 % (13.2-15.2); White Blood Count 11.6 K/mm3 (4.5-11.0)
[2017-02-09 15:14] LABS: Anion Gap 17 mmol/L; BUN/Creatinine Ratio 18; Blood Urea Nitrogen 16 mg/dL (9-20); Calcium 9.1 mg/dL (8.4-10.2); Carbon Dioxide 22 mmol/L (22-30); Chloride 105.7 mmol/L (98-107); Glucose 93 mg/dL (75-100); Potassium 4.1 mmol/L (3.6-5.0); Sodium 141 mmol/L (137-145)
[2017-02-09 17:14] VITALS: BP 127/87
== END 2017-02-09 19:53 | disposition left against medical advice (07) ==
LOC: ED 13:25
DX: R07.9 Chest pain, unspecified (principal); Z53.21 Procedure and treatment not carried out due to patient leaving prior to being seen by health care provider
CPT/HCPCS: 36415; 80048; 84484; 85025; 93005; 93010

== ENCOUNTER 2017-03-22 08:45 | Emergency (ER) | payer MEDICAID | END 2017-03-22 09:45 | disposition left against medical advice (07) | LOC: ED 08:45 | DX: R05 Cough (principal); Z53.21 Procedure and treatment not carried out due to patient leaving prior to being seen by health care provider ==

== ENCOUNTER 2017-09-05 17:14 | Emergency (ER) | payer MEDICAID ==
[2017-09-05] MEDS ORDERED: TYLENOL ONE (17:38)
[2017-09-05] MEDS ORDERED: TYLENOL PO ONE (17:41)
[2017-09-05] MEDS ORDERED: NACL 0.9% 500 ML 500 ML IV ONE (21:47)
[2017-09-05] MEDS ORDERED: MORPHINE IV ONE (21:47)
[2017-09-05] MEDS ORDERED: BENADRYL IV ONE (21:47)
--- NOTE | 2017-09-05 22:39 | Cat Scan Report ---
FINAL REPORT PROCEDURE: CT HEAD/BRAIN WO CON TECHNIQUE: Computerized tomography of the head was performed without contrast material. HISTORY: headache COMPARISON: No prior studies are available for comparison. FINDINGS: Skull and scalp: Normal. Paranasal sinuses: Mucosal thickening is noted involving left ethmoid sinuses.. Ventricles and subarachnoid spaces: Normal. Cerebrum: An irregular area of encephalomalacia is noted involving left frontal lobe. An acute intra-axial or extra-axial hemorrhage is not identified. There is no mass effect.. Cerebellum and brainstem: No evidence of hemorrhage, acute infarction or mass. Vasculature: Atherosclerotic calcification is noted involving bilateral internal carotid and vertebral arteries.. Comments: None. 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 No acute intracranial abnormality.
--- NOTE | 2017-09-05 23:59 | Emergency Department Report ---
HPI - General Chief Complaint: Headache Time Seen by Provider: 09/05/17 21:46 - HPI HPI: The patient is a 56-year-old male who presents for evaluation of headache. The patient reports constant headache for the past 4 days, 10/10 in severity, throbbing in quality, exacerbated with position changes. He states that his headache is consistent with previous headaches. The patient denies fever, head injury, neck pain, neck stiffness, vision or hearing changes, smell or taste changes, paresthesias, facial drooping, slurred speech, seizure-like activity, urine or bowel incontinence or retention, or other focal neurological deficit. ED Past Medical Hx - Past Medical History Hx Hypertension: Yes Hx CVA: Yes (right side weakness) Hx Congestive Heart Failure: No Hx Diabetes: No Hx Arthritis: Yes Hx Asthma: No Hx COPD: No Additional medical history: HIGH CHOLESTEROL. GOUT - Surgical History Additional Surgical History: prostate surgery - Social History Smoking Status: Current Every Day Smoker Substance Use Type: Alcohol - Medications Home Medications: Home Medications Medication Instructions Recorded Confirmed Last Taken Type Aspirin EC [Aspirin Enteric Coated 81 mg PO QDAY #30 tablet. 07/15/15 Unknown Rx TAB] Indomethacin [Indocin] 25 mg PO Q8H #14 capsule 07/15/15 03/21/16 Rx Pravastatin [Pravachol] 20 mg PO QDAY #30 tablet 07/15/15 03/21/16 Rx amLODIPine [Norvasc] 10 mg PO DAILY #30 tablet 07/15/15 03/21/16 Rx Butalb/Acetamin/Caff 50-325-40 1 tab PO Q6HR PRN #12 tab 07/12/16 Unknown Rx [Fioricet] Acetaminophen [Acetaminophen TAB] 650 mg PO Q6HR PRN #15 tablet 08/09/16 Unknown Rx methOCARBAMOL [Robaxin TAB] 500 mg PO BID #20 tab 09/06/16 Unknown Rx ALBUTEROL Inhaler [ProAir HFA 2 puff IH QID PRN #1 inhalation 04/21/17 Unknown Rx Inhaler] Ibuprofen [Motrin] 800 mg PO Q8HR PRN #15 tablet 04/21/17 Unknown Rx Allopurinol 300 mg PO DAILY 04/22/17 04/22/17 Unknown History Finasteride 5 mg PO DAILY 04/22/17 04/22/17 Unknown History Tamsulosin 0.4 mg PO DAILY 04/22/17 04/22/17 Unknown History Albuterol Sulfate [Ventolin HFA] 2 puff IH Q4H PRN #1 pump 04/24/17 Unknown Rx Azithromycin [Zithromax TAB] 500 mg PO QDAY 5 Days tablet 04/24/17 Unknown Rx Prednisone [predniSONE 10 mg 10 mg PO .TAPER #1 tab.ds.pk 04/24/17 Unknown Rx (6-Day Pack, 21 Tabs)] Butalb/Acetaminophen/Caffeine 1 - 2 cap PO Q6HR PRN #14 cap 09/06/17 Unknown Rx [Fioricet 50-300-40 mg CAP] ED Review of Systems ROS: Stated complaint: MIGRAINE Other details as noted in HPI Constitutional: denies: fever ENT: denies: throat or neck pain Respiratory: denies: cough, shortness of breath Cardiovascular: denies: chest pain Endocrine: denies unexplained weight loss or gain Gastrointestinal: denies: abdominal pain, nausea Genitourinary: denies: dysuria Musculoskeletal: denies: leg swelling Skin: denies: rash Neurological: reports: headache Hematological/Lymphatic: denies: easy bleeding or easy bruising Psych: denies sadness or hopelessness Physical Exam - Physical Exam Vital Signs: Vital Signs 09/05/17 09/05/17 09/05/17 17:28 18:42 22:24 Temperature 98.5 F 98.6 F Pulse Rate 83 82 Respiratory 20 20 20 Rate Blood Pressure 138/94 Blood Pressure 137/97 [Right] O2 Sat by Pulse 100 99 Oximetry 09/05/17 09/05/17 09/05/17 22:26 22:55 23:25 Temperature Pulse Rate Respiratory 20 20 20 Rate Blood Pressure Blood Pressure [Right] O2 Sat by Pulse 99 Oximetry Physical Exam: General: well-nourished, well-developed, no acute distress Head: Normocephalic, atraumatic Eyes: normal sclera ENT: Mucous membranes are pale and dry Neck: trachea midline, neck supple, No neck stiffness, no cervical adenopathy Respiratory: Breath sounds equal bilaterally, no wheezing, rales, or rhonchi Cardio: S1 and S2 present, no murmurs, rubs, gallops, capillary refill is delayed Abdomen: Normoactive bowel sounds, soft abdomen, no rigidity, no guarding or rebound tenderness Chest WALL/Back: No tenderness to palpation of the chest wall, no CVA tenderness with percussion Musc: No pitting edema Skin: No rash Neuro: alert oriented x4, normal cognition, speech normal, PERRL, EOM intact, no facial drooping, no uvula or tongue deviation on protrusion, no deficit with rotation of neck or shoulder shrug, no obvious gross motor deficit in the upper or lower extremities with flexion or extension at the shoulder, elbow, wrist, hip, knee, or ankle bilaterally, no obvious gross sensation deficit to crude touch or 2 pt discrimination, 2+ symmetric reflexes on DTR testing, no coordination deficit with pzwjlc-xw-qoyf or kscz-ff-svtj testing, Babinski downgoing, romberg negative Psych: Normal affect ED Course Vital Signs 09/05/17 09/05/17 09/05/17 17:28 18:42 22:24 Temperature 98.5 F 98.6 F Pulse Rate 83 82 Respiratory 20 20 20 Rate Blood Pressure 138/94 Blood Pressure 137/97 [Right] O2 Sat by Pulse 100 99 Oximetry 09/05/17 09/05/17 09/05/17 22:26 22:55 23:25 Temperature Pulse Rate Respiratory 20 20 20 Rate Blood Pressure Blood Pressure [Right] O2 Sat by Pulse 99 Oximetry ED Medical Decision Making - Medical Decision Making The patient was seen and examined by myself. The patient is placed on a logging specialist and continuous pulse ox. On initial evaluation, the patient was found to be in no distress. Evaluation orders were placed. The patient wanted normal saline fluid bolus for treatment of his dehydration and IV morphine for treatment of his headache. CT scan the head is negative for acute intracranial disease process. The patient was reevaluated and reported that their symptoms were markedly improved. The patient is stable for discharge with outpatient follow-up. The patient is given follow-up and return instructions. The patient expressed understanding and agreed with the plan. The patient is discharged in stable condition. Critical care attestation.: If time is entered above; I have spent that time in minutes in the direct care of this critically ill patient, excluding procedure time. ED Disposition Clinical Impression: Acute non intractable tension-type headache, Dehydration Disposition: - TO HOME OR SELFCARE Is pt being admited?: No Does the pt Need Aspirin: No Condition: Stable Instructions: Acute Headache (ED), Dehydration (ED) Referrals: CHAMPION,NGOC L, MD [Primary Care Provider] - 3-5 Days Time of Disposition: 23:12
[2017-09-06 00:16] VITALS: BP 111/78
== END 2017-09-06 01:03 | disposition home or self-care (01) ==
LOC: ED 17:14
DX: G44.209 Tension-type headache, unspecified, not intractable (principal); E86.0 Dehydration; I10 Essential (primary) hypertension; M19.90 Unspecified osteoarthritis, unspecified site; E78.00 Pure hypercholesterolemia, unspecified; F17.200 Nicotine dependence, unspecified, uncomplicated; Z86.73 Personal history of transient ischemic attack (TIA), and cerebral infarction without residual deficits; Z88.0 Allergy status to penicillin
CPT/HCPCS: 70450; 82962; 96374; 96375; 99284; J1200; J2270; J7040

== ENCOUNTER 2018-09-29 11:13 | Emergency (ER) | payer MEDICAID ==
[2018-09-29 11:37] VITALS: BP 141/88
--- NOTE | 2018-09-29 11:39 | Event Note ---
ED Screening Note Date of service: 09/29/18 Time: 11:35 ED Screening Note: This is a 57 y.o. M. that presents to the ER with SOB, chest pain, and body aches x 1.5 weeks. PMH COPD, HTN, CVA, Gout, arthritis Current smoker This initial assessment/diagnostic orders/clinical plan/treatment(s) is/are subject to change based on patients health status, clinical progression and re- assessment by fellow clinical providers in the ED. Further treatment and workup at subsequent clinical providers discretion. Patient/guardian urged not to elope from the ED as their condition may be serious if not clinically assessed and managed. Initial orders include: CXR & EKG
--- NOTE | 2018-09-29 12:03 | XRay Report ---
CHEST 2 VIEWS INDICATION / CLINICAL INFORMATION: SOB, chest tightness. COMPARISON: Chest x-ray on 04/21/2017. FINDINGS: SUPPORT DEVICES: None. HEART / MEDIASTINUM: No significant abnormality. LUNGS / PLEURA: There is a new focal hazy parenchymal opacity in the right upper lobe. There is no pl eural effusion. The left lung appears clear. No pneumothorax. ADDITIONAL FINDINGS: No significant additional findings. IMPRESSION: 1. New hazy right upper lobe parenchymal opacity which may represent a focal infectious process. Give n the reported history of COPD, this should be followed to radiographic resolution and there should b e a low threshold to obtain chest CT if it does not resolve. Signer Name: Walter Lainez MD Signed: 09/29/2018 11:58 AM Workstation Name: [id number]
[2018-09-29] MEDS ORDERED: LEVAQUIN PO STA (12:44)
[2018-09-29] MEDS ORDERED: DELTASONE PO STA (13:23)
[2018-09-29] MEDS ORDERED: TYLENOL/CODEINE PO STA (13:23)
[2018-09-29] MEDS ORDERED: DUONEB *Not for PRN Use IH ONE (13:23)
--- NOTE | 2018-09-29 15:47 | Emergency Department Report ---
ED General Adult HPI - General Chief complaint: Dyspnea/Respdistress Stated complaint: COPD/KACIE/CHEST PAIN/HOT/COLD FLASHES Time Seen by Provider: 09/29/18 11:34 Source: patient Mode of arrival: Ambulatory Limitations: No Limitations - History of Present Illness Initial comments: 57-year-old -[place] male smoker with a past medical history of COPD, BPH, arthritis, hypertension and gout presents to the emergency department complaining of a 2 week history of progressively worsening cough, can ingestion, shortness of breath and mucous production. Gojz-sbf-usvhdyi medication has not helped and he is recently begin to utilize his albuterol inhaler minimal response. Reports no hemoptysis, no hematemesis, hematochezia, no nausea, no vomiting, diarrhea, rashes. States that he felt the illness, no organomegaly thought he might of had a cold but has not been able to "shake it". Radiation: non-radiation Severity scale (0 -10): 10 Quality: dull Consistency: constant Improves with: none Worsens with: none Associated Symptoms: denies other symptoms, cough. denies: chest pain, diaphoresis, loss of appetite, malaise, nausea/vomiting, seizure, syncope, weakness Treatments Prior to Arrival: none - Related Data Home Medications Medication Instructions Recorded Confirmed Last Taken Allopurinol 300 mg PO DAILY 04/22/17 04/22/17 Unknown Finasteride 5 mg PO DAILY 04/22/17 04/22/17 Unknown Tamsulosin 0.4 mg PO DAILY 04/22/17 04/22/17 Unknown Previous Rx's Medication Instructions Recorded Last Taken Type Aspirin EC 81 mg PO QDAY #30 tablet. 07/15/15 Unknown Rx Indomethacin [Indocin] 25 mg PO Q8H #14 capsule 07/15/15 03/21/16 Rx Pravastatin [Pravachol] 20 mg PO QDAY #30 tablet 07/15/15 03/21/16 Rx amLODIPine [Norvasc] 10 mg PO DAILY #30 tablet 07/15/15 03/21/16 Rx Butalb/Acetamin/Caff 50-325-40 1 tab PO Q6HR PRN #12 tab 07/12/16 Unknown Rx [Fioricet 50-325-40] Acetaminophen [Acetaminophen TAB] 650 mg PO Q6HR PRN #15 tablet 08/09/16 Unknown Rx methOCARBAMOL [Robaxin TAB] 500 mg PO BID #20 tab 09/06/16 Unknown Rx ALBUTEROL Inhaler (OR & NICU) 2 puff IH QID PRN #1 inhalation 04/21/17 Unknown Rx [ProAir HFA Inhaler] Ibuprofen [Motrin] 800 mg PO Q8HR PRN #15 tablet 04/21/17 Unknown Rx Albuterol Sulfate [Ventolin HFA] 2 puff IH Q4H PRN #1 pump 04/24/17 Unknown Rx Azithromycin [Zithromax TAB] 500 mg PO QDAY 5 Days tablet 04/24/17 Unknown Rx Prednisone [predniSONE 10 mg 10 mg PO .TAPER #1 tab.ds.pk 04/24/17 Unknown Rx (6-Day Pack, 21 Tabs)] Butalb/Acetaminophen/Caffeine 1 - 2 cap PO Q6HR PRN #14 cap 09/06/17 Unknown Rx [Fioricet 50-300-40 mg CAP] Allergies Allergy/AdvReac Type Severity Reaction Status Date / Time Penicillins Allergy Rash Verified 04/21/17 12:38 ED Review of Systems ROS: Stated complaint: COPD/KACIE/CHEST PAIN/HOT/COLD FLASHES Other details as noted in HPI Comment: All other systems reviewed and negative ED Past Medical Hx - Past Medical History Previous Medical History?: Yes Hx Hypertension: Yes Hx CVA: Yes (right side weakness) Hx Congestive Heart Failure: No Hx Diabetes: No Hx Arthritis: Yes Hx Asthma: No Hx COPD: No Additional medical history: HIGH CHOLESTEROL. GOUT - Surgical History Past Surgical History?: Yes Additional Surgical History: prostate surgery - Social History Smoking Status: Current Every Day Smoker Substance Use Type: None - Medications Home Medications: Home Medications Medication Instructions Recorded Confirmed Last Taken Type Aspirin EC 81 mg PO QDAY #30 tablet. 07/15/15 Unknown Rx Indomethacin [Indocin] 25 mg PO Q8H #14 capsule 07/15/15 03/21/16 Rx Pravastatin [Pravachol] 20 mg PO QDAY #30 tablet 07/15/15 03/21/16 Rx amLODIPine [Norvasc] 10 mg PO DAILY #30 tablet 07/15/15 03/21/16 Rx Butalb/Acetamin/Caff 50-325-40 1 tab PO Q6HR PRN #12 tab 05/22/17 Unknown Rx [Fioricet 50-325-40] Acetaminophen [Acetaminophen TAB] 650 mg PO Q6HR PRN #15 tablet 08/09/16 Unknown Rx methOCARBAMOL [Robaxin TAB] 500 mg PO BID #20 tab 09/06/16 Unknown Rx ALBUTEROL Inhaler (OR & NICU) 2 puff IH QID PRN #1 inhalation 04/21/17 Unknown Rx [ProAir HFA Inhaler] Ibuprofen [Motrin] 800 mg PO Q8HR PRN #15 tablet 04/21/17 Unknown Rx Allopurinol 300 mg PO DAILY 04/22/17 04/22/17 Unknown History Finasteride 5 mg PO DAILY 04/22/17 04/22/17 Unknown History Tamsulosin 0.4 mg PO DAILY 04/22/17 04/22/17 Unknown History Albuterol Sulfate [Ventolin HFA] 2 puff IH Q4H PRN #1 pump 04/24/17 Unknown Rx Azithromycin [Zithromax TAB] 500 mg PO QDAY 5 Days tablet 04/24/17 Unknown Rx Prednisone [predniSONE 10 mg 10 mg PO .TAPER #1 tab.ds.pk 04/24/17 Unknown Rx (6-Day Pack, 21 Tabs)] Butalb/Acetaminophen/Caffeine 1 - 2 cap PO Q6HR PRN #14 cap 09/06/17 Unknown Rx [Fioricet 50-300-40 mg CAP] ED Physical Exam - General Limitations: No Limitations - Respiratory Respiratory exam: Present: wheezes, rhonchi. Absent: decreased breath sounds, prolonged expiratory - Cardiovascular Cardiovascular Exam: Present: regular rate ED Course Vital Signs 09/29/18 09/29/18 11:36 14:07 Temperature 99.9 F H Pulse Rate 87 Pulse Rate [ 89 Anterior Bilateral Throughout] Respiratory 22 Rate Respiratory 18 Rate [Anterior Bilateral Throughout] Blood Pressure 141/88 O2 Sat by Pulse 98 Oximetry ED Medical Decision Making - Radiology Data Radiology results: report reviewed (presents infiltrate to the bases. Infiltrate to the bases) - Medical Decision Making 57-year-old -[place] male with COPD and x-ray report. Those records. There is some haziness to the right upper lobe parenchymal which may be which may represent a infectious process. His temperature been at 99.9. His not tachycardic, but does continue to cough and producing mucus. Very likely this is some evolving bronchitis which may be having some evolving pneumonia as well. Critical care attestation.: If time is entered above; I have spent that time in minutes in the direct care of this critically ill patient, excluding procedure time. ED Disposition Condition: Stable
== END 2018-09-29 16:25 | disposition home or self-care (01) ==
LOC: ED 11:13
DX: J44.9 Chronic obstructive pulmonary disease, unspecified (principal); I10 Essential (primary) hypertension; M10.9 Gout, unspecified; E78.00 Pure hypercholesterolemia, unspecified; F17.200 Nicotine dependence, unspecified, uncomplicated; Z88.0 Allergy status to penicillin; Z79.82 Long term (current) use of aspirin; Z79.899 Other long term (current) drug therapy; Z79.1 Long term (current) use of non-steroidal anti-inflammatories (NSAID); Z86.73 Personal history of transient ischemic attack (TIA), and cerebral infarction without residual deficits
CPT/HCPCS: 71046; 93005; 93010; 94640; 99284; J7512; 94644

== ENCOUNTER 2019-04-26 10:30 | Day surgery (SDC) | payer MEDICAID ==
[~2019-04-26 10:30] MED LIST: WATER FOR IRRIG STERILE 2000 ML IR ONE
--- NOTE | 2019-04-26 11:02 | Anesthesia Day of Surgery ---
Anesthesia Day of Surgery - Day of Surgery Patient Examined: Yes Patient H&P Reviewed: Yes Patient is NPO: Yes
--- NOTE | 2019-04-26 11:07 | Anesthesia Consultation ---
Anesthesia Consult and Med Hx Date of service: 04/26/19 - Airway Anesthetic Teeth Evaluation: Chipped ROM Head & Neck: Adequate Mental/Hyoid Distance: Adequate Mallampati Class: Class III Intubation Access Assessment: Probably Good - Pre-Operative Health Status ASA Pre-Surgery Classification: ASA3 Proposed Anesthetic Plan: General - Pulmonary Hx Smoking: Yes (1 PPD X 30 YRS) Hx Asthma: No SOB: Yes (SOB) COPD: Yes (PRN INHALERS) Hx Pneumonia: Yes (5 MOMTHS AGO- RESOLVED) Hx Sleep Apnea: No (CELINE PRE SCREEN HIGH RISK.) - Cardiovascular System Hx Hypertension: Yes (X 7 YRS) - Central Nervous System Hx Neuromuscular Disorder: Yes (Gout) CVA: Yes (4 YRS AGO- RT SIDED WEAKNESS ( NEVER ON BLOOD THINNERS)) Hx Back Pain: Yes (NECK PAIN) Hx Psychiatric Problems: Yes (Anxiety) - Gastrointestinal Hx Gastroesophageal Reflux Disease: Yes - Endocrine Hx End Stage Renal Disease: No - Other Systems Hx Alcohol Use: Yes (HX ABUSE (1 PINT QD X35 YRS) NOW DRINKS OCC.) Hx Cancer: No Hx Obesity: Yes
[2019-04-26] MEDS ORDERED: ONDANSETRON 4 MG/2 ML INJ IV PRN (11:09)
[2019-04-26] MEDS ORDERED: ACETAMINOPHEN 500 MG TAB PO NR (11:10)
[2019-04-26] MEDS ORDERED: MAGNESIUM OXIDE 400 MG TAB PO NR (11:10)
[2019-04-26] MEDS ORDERED: MORPHINE 2 MG/1 ML INJ ONE (11:38)
[2019-04-26] MEDS ORDERED: LIDOCAINE (1%) 10 MG/1 ML VIAL 20 ML MDV ONE ×2 (11:49→14:17)
[2019-04-26] MEDS ORDERED: BUPIVACAINE/PF (0.25%) 2.5 MG/ML 30 ML VIAL INFILTRATI ONE (11:50)
[2019-04-26] MEDS ORDERED: MORPHINE 2 MG/1 ML INJ IV ONE (12:00)
[2019-04-26] MEDS ORDERED: LACTATED RINGERS 1,000 ML IV SCH (12:00)
--- NOTE | 2019-04-26 12:18 | Post Operative Note ---
Date of procedure: 04/26/19 Pre-op diagnosis: left hydrocele stricture Post-op diagnosis: same Findings: same Procedure: l hydrocelectomy cysto dviu Anesthesia: GETA Surgeon: KRISTINA BYRNES Estimated blood loss: minimal Pathology: list (sac) Specimen disposition: to lab Condition: stable Disposition: PACU
--- NOTE | 2019-04-26 12:19 | Discharge Summary ---
Short Stay Discharge Plan Activity: other (no straining ) Weight Bearing Status: Full Weight Bearing Diet: low fat, low cholesterol, low salt Wound: keep clean and dry, change dressing Special Instructions: other (has drain needs f/u ) Durable Medical Equipment Needed Upon Discharge: other (taylor ) Follow up with: REYNALDO TITUSOSGOOD MD [facility] [Primary Care Provider] - 7 Days KRISTINA BYRNES MD [Staff Physician] - 3 Days
[2019-04-26] MEDS ORDERED: LIDOCAINE MPF (2%) 20 MG/1 ML VIAL 5 ML ONE (12:24)
[2019-04-26] MEDS ORDERED: HYDROmorphone 1 MG/1 ML INJ ONE (12:24)
[2019-04-26] MEDS ORDERED: propofoL 200 MG/20 ML VIAL IV ONE (12:24)
[2019-04-26] MEDS ORDERED: SODIUM CHLORIDE 0.9% IRR 1,500 ML BOTTLE IR ONE ×2 (13:05→13:10)
[2019-04-26] MEDS ORDERED: WATER FOR IRRIG STERILE 2000 ML IR ONE (13:12)
[2019-04-26] MEDS ORDERED: ONDANSETRON 4 MG/2 ML INJ ONE (13:33)
[2019-04-26] MEDS: fentaNYL 100 MCG/2 ML INJ IV PRN ×2 (13:50→14:00)
--- NOTE | 2019-04-26 14:08 | Operative Report ---
PREOPERATIVE DIAGNOSES: Large left hydrocele, smaller right hydrocele, urethral stricture. POSTOPERATIVE DIAGNOSES: Large left hydrocele, smaller right hydrocele, urethral stricture. PROCEDURE: Left hydrocelectomy and cystoscopy, direct vision internal urethrotomy. SURGEON: Dr. Win. ANESTHESIA: General. FINDINGS: This is a gentleman with large left hydrocele, symptomatic, intermittent pain, now presents for treatment. He also has a very weak flow and urethral stricture. DESCRIPTION OF PROCEDURE: The patient was brought to the operating room and placed on the operating table. Following induction of anesthesia, placed in lithotomy position, prepped and draped in usual sterile fashion. An oblique incision was made over the left hemiscrotum, carried through the skin and superficial fascial layers. Tunica vaginalis was delivered. Approximately 80 mL of clear fluid was evacuated. The testis was quite small, measured approximately 2.5 cm. We excised the tunica vaginalis and then imbricated it with 3-0 chromic. Hemostasis was excellent. A half inch Darlene was brought out through a dependent portion of the scrotum. Superficial fascia was closed with 3-0 and 2-0 chromic, skin with 2-0 chromic. The patient tolerated the procedure well. At this point, cystoscopy was carried out. The meatus had to be dilated and approximately mid penile urethra had a 3 cm narrowing. We could not bypass. A wire was placed into the bladder and this was opened. There was no bleeding. Once we got past the stricture, the urethra was dilated. Bladder neck was open. Prostatic urethra was not enlarged. The patient tolerated the procedure well. There were no bladder lesions. We looked at the bladder well with the direct vision instrument as best as possible. A Councill catheter 20 was placed. He was brought to recovery room in stable condition. JOB# [id number] SANCHO/CRIS
[2019-04-26 15:04] VITALS: BP 120/82
== END 2019-04-26 15:45 | disposition home or self-care (01) ==
LOC: OR 10:30
PROVIDERS: ATTEND Urology
DX: N43.2 Other hydrocele (principal); N35.819 Other urethral stricture, male, unspecified site; I10 Essential (primary) hypertension; E66.01 Morbid (severe) obesity due to excess calories; E78.00 Pure hypercholesterolemia, unspecified; K21.9 Gastro-esophageal reflux disease without esophagitis; M19.90 Unspecified osteoarthritis, unspecified site; F41.9 Anxiety disorder, unspecified; F10.10 Alcohol abuse, uncomplicated; Z79.899 Other long term (current) drug therapy; Z88.0 Allergy status to penicillin; Z79.82 Long term (current) use of aspirin; Z91.14 Patient's other noncompliance with medication regimen; Z68.41 Body mass index [BMI] 40.0-44.9, adult; Z86.2 Personal history of diseases of the blood and blood-forming organs and certain disorders involving the immune mechanism; Z86.73 Personal history of transient ischemic attack (TIA), and cerebral infarction without residual deficits
CPT/HCPCS: 52276; 55040; 88304; A4217; C1769; J1170; J1956; J2270; J2405; J2704; J3010; J7120; 88302

== ENCOUNTER 2021-05-01 11:55 | Outpatient (CLI) | payer MEDICAID ==
--- NOTE | 2021-05-01 15:06 | XRay Report ---
Left hand 3 views INDICATION: Pain FINDINGS: Alignment appears normal. MCP joints and IP joints appear normal. Carpal bone alignment yuri ears normal. Signer Name: Khari Lizama MD Signed: 05/01/2021 3:02 PM Workstation Name: [id number]
--- NOTE | 2021-05-01 16:24 | XRay Report ---
STANDING KNEES frontal view INDICATION / CLINICAL INFORMATION: Bilateral knee pain. COMPARISON: None available. FINDINGS: BONES / JOINT(S): No acute fracture or subluxation. Mild narrowing at the medial compartment left gre ater than right. SOFT TISSUES: No significant abnormality. ADDITIONAL FINDINGS: None. Signer Name: Luis M Batista MD Signed: 05/01/2021 4:19 PM Workstation Name: [id number]
== END 2021-05-01 11:56 | disposition home or self-care (01) ==
LOC: XRAY 11:55
PROVIDERS: ATTEND Orthopaedic Surgery
DX: M17.0 Bilateral primary osteoarthritis of knee (principal); M25.532 Pain in left wrist
CPT/HCPCS: 73565